=== PATIENT | female | born 1975 | race Caucasian/White ===

== ENCOUNTER 2019-10-25 12:23 | Outpatient (CLI) | payer OTHER, SELFPAY ==
--- NOTE | ~2019-10-25 | MMUS_ITS ---
EXAMINATION: MM diagnostic malcom RT w caitlin, US breast RT limited HISTORY: Follow-up right breast asymmetry TECHNIQUE: Additional 3-D tomosynthesis images of the right breast were performed and synthetic 2-D i mages were generated. CAD analysis was submitted and interpreted. High resolution breast ultrasound w as performed. COMPARISON: Comparison to multiple prior studies sequentially, with oldest reviewed study dated 09/2017. FINDINGS: MAMMOGRAPHIC FINDINGS: The breasts are heterogenously dense, which may obscure small masses. There is a persistent radioluce nt mass with incompletely circumscribed margins in the upper central aspect of the right breast. RIGHT breast ultrasound: At 12:00, 4 cm from the nipple, there is an oval slightly lobulated hypoechoic mass with some irregul ar margins. There are internal septations. This mass measures 1.8 x 1.2 x 0.6 cm there is minimal int ernal vascularity. No significant posterior features. This corresponds to the mammographic finding. IMPRESSION: 1. Oval hypoechoic right breast mass at 12:00, 4 cm from the nipple measuring 1.8 x 1.2 x 0.6 cm. Thi s corresponds to the mammographic finding. 2. Ultrasound-guided right breast biopsy recommended. BI-RADS category 4, suspicious findings. Reviewed, dictated and finalized at location A. IMPRESSION: 1. Oval hypoechoic right breast mass at 12:00, 4 cm from the nipple measuring 1 .8 x 1.2 x 0.6 cm. This corresponds to the mammographic finding. 2. Ultrasound-guided right breast biopsy recommended. BI-RADS category 4, suspicious findings.
== END 2019-10-25 12:24 | disposition home or self-care (01) ==
LOC: ANHIMG 12:27
PROVIDERS: PCP Family Medicine; Visit Provider Obstetrics & Gynecology
DX: N63.10 Unspecified lump in the right breast, unspecified quadrant (principal); R92.8 Other abnormal and inconclusive findings on diagnostic imaging of breast
CPT/HCPCS: 76642; 77061; 77065; G0279

== ENCOUNTER 2020-07-17 12:07 | Outpatient (CLI) | payer OTHER, SELFPAY ==
--- NOTE | ~2020-07-17 | MMUS_ITS ---
EXAMINATION: MM diagnostic malcom BI w caitlin, US breast RT limited HISTORY: Follow-up breast mass TECHNIQUE: Additional 3-D tomosynthesis images of the breasts were performed and synthetic 2-D images were generated. CAD analysis was submitted and interpreted. High resolution right breast ultrasound was performed. COMPARISON: Comparison to multiple prior studies sequentially, with oldest reviewed study dated 09/2017. BREAST PARENCHYMAL COMPOSITION: The breasts are heterogenously dense, which may obscure small masses. FINDINGS: MAMMOGRAPHIC FINDINGS: There are no suspicious masses, calcifications or architectural distortion in either breast to sugges t malignancy. ULTRASOUND: Left breast ultrasound: Normal heterogeneous echotexture without focal mass. IMPRESSION: 1. No evidence for malignancy in either breast. 2. Routine yearly screening mammogram and regular clinical breast examination are recommended. BI-RADS Category 1: Negative Reviewed, dictated and finalized at location A. ASSEMBLER IMPRESSION: 1. No evidence for malignancy in either breast. 2. Routine yearly screening mammogram and regular clinical breast examination a re recommended. BI-RADS Category 1: Negative
== END 2020-07-17 12:08 | disposition home or self-care (01) ==
LOC: ANHIMG 12:10
PROVIDERS: PCP Family Medicine; Visit Provider Obstetrics & Gynecology
DX: R92.8 Other abnormal and inconclusive findings on diagnostic imaging of breast (principal)
CPT/HCPCS: 76642; 77062; 77066; G0279

== ENCOUNTER 2021-12-11 10:01 | Outpatient (CLI) | payer OTHER, SELFPAY ==
--- NOTE | ~2021-12-11 | MM_ITS ---
EXAMINATION: MM screening malcom BI w caitlin HISTORY: Screening mammogram TECHNIQUE: Craniocaudal and mediolateral oblique 3-D tomosynthesis images were obtained and synthetic 2-D images were generated. CAD analysis was submitted and interpreted. COMPARISON: 07/17/2020 diagnostic bilateral mammogram and limited right breast ultrasound 3 and 06/30/2019 diagnostic right mammogram and limited right breast ultrasound examinations 06/23/2019, 06/12/2018 bilateral screening mammogram examinations BREAST PARENCHYMAL COMPOSITION: The breasts are heterogeneously dense, which may obscure small masses . FINDINGS: There is no evidence of suspicious mass, calcification, or architectural distortion to sugg est malignancy in either breast. There has been no suspicious interval change. IMPRESSION: 1. No mammographic evidence of malignancy. 2. Recommend routine screening mammography in one year. BI-RADS Category 1: Negative Reviewed, dictated and finalized at location A.
== END 2021-12-11 10:02 | disposition home or self-care (01) ==
PROVIDERS: PCP Family Medicine; Visit Provider Obstetrics & Gynecology
DX: Z12.31 Encounter for screening mammogram for malignant neoplasm of breast (principal)
CPT/HCPCS: 77063; 77067

== ENCOUNTER 2023-03-31 08:11 | Outpatient (CLI) | payer OTHER, SELFPAY ==
--- NOTE | ~2023-03-31 | MM_ITS ---
EXAMINATION: MM screening malcom BI w caitlin HISTORY: Screening mammogram TECHNIQUE: Craniocaudal and mediolateral oblique 3-D tomosynthesis images were obtained and synthetic 2-D images were generated. CAD analysis was submitted and interpreted. COMPARISON: 12/11/2021 bilateral screening mammogram examination 07/17/2020 diagnostic bilateral mammogram and limited right breast ultrasound 10/25/2019 06/30/2019 diagnostic right mammogram and limited right breast ultrasound 06/23/2019, 06/12/2018 bilateral screening mammogram examinations BREAST PARENCHYMAL COMPOSITION: The breasts are heterogeneously dense, which may obscure small masses . FINDINGS: There is a biopsy marker in the posterior upper central right breast; history of prior abhay gn right breast biopsy. There is no evidence of suspicious mass, calcification, or architectural dist ortion to suggest malignancy in either breast. There has been no suspicious interval change. IMPRESSION: 1. No mammographic evidence of malignancy. 2. Recommend routine screening mammography in one year. BI-RADS Category 1: Negative Reviewed, dictated and finalized at location A.
== END 2023-03-31 08:12 | disposition home or self-care (01) ==
LOC: ANHIMG 08:14
PROVIDERS: PCP Family Medicine; Visit Provider Obstetrics & Gynecology
DX: Z12.31 Encounter for screening mammogram for malignant neoplasm of breast (principal)
CPT/HCPCS: 77063; 77067

== ENCOUNTER 2025-02-10 15:39 | Outpatient (CLI) | payer OTHER, SELFPAY ==
--- NOTE | ~2025-02-10 | MM_ITS ---
EXAMINATION: MM screening [facility] BI w caitlin HISTORY: Screening mammogram TECHNIQUE: Craniocaudal and mediolateral oblique 3-D tomosynthesis images were obtained and synthetic 2-D images were generated. CAD analysis was submitted and interpreted. COMPARISON: 03/31/2023, 12/11/2021, 07/17/2020 BREAST PARENCHYMAL COMPOSITION:Not Dense. There are scattered areas of fibroglandular density. FINDINGS: No suspicious mass, calcification, or architectural distortion are identified in either marguerite ast to suggest malignancy. There has been no suspicious interval change. IMPRESSION: No mammographic evidence of malignancy. Recommend routine screening mammography in one year. BI-RADS Category 1: Negative Reviewed, dictated and finalized at location .
--- OUTSIDE RECORDS SUMMARY | 2025-02-10 15:42 | XMS_ITS | Clinical Summary ---
Author Organization [facility] Address [address] [place] [address] Care Team Providers Care Slat Pickler Name Role Phone Unavailable Primary Care Provider Unavailabl e Source Comments [facility],non-owned Affiliates and Associated Physician Practices is amultiple site organization consisting of ambulatory clinics and hospital sitesin [place], [place], [place] and [place]. This disclosure is being madepursuant to the Care Everywhere program and may not contain all information available regarding this patient. Last updated 18.[facility] Active Problems Problem Noted Date Diagnosed Date Advanced maternal age in 04/12/2014 Sequential screen 04/08/2014 Encounter for supervision of other normal pregna ncy 04/08/2014 Overview (06/18/2015): Social History Tobacco Use Types Packs/Day Years Used Date Smoking Tobacco: Never Assessed Comments No Sex and Gender Information Value Date Recorded Sex Assigned at Not on file Legal Sex Female 11:01 AM CDT Gender Identity Not on file Sexual Orientation Not on file Plan of Treatment Health Maintenance Due Date Last Done Comments COLOGUARD (AGES 45-75) - COL ON CA SCREENING 1977 COLON MONITORING 1977 COLONOSCOPY - COLON CA SCREENING 1977 CT COLONOGRAPHY - COLON CA SCREENING 1977 Colorectal Cancer Screening 1977 FIT - COLON CA SCREENING 1977 FLEX SIG - COLON CA SCREENING 1977 LIPID TESTING 1977 MAMMOGRAM 1977 HIV SCREENING 1992 HEPATITIS C SCREENING 11/28/1995 DTAP/TDAP/TD VACCINES (1 - Tdap) 1996 HEPATITIS B VACCINE (1 of 3 - 19+ 3-dose series) 1996 COVID-19 VACCINE (2023-2 5 season) 2024 DEPRESSION SCREENING 08/11/2024 INFLUENZA VACCINE (Season Ended) 2025 ZOSTER VACCINE (1 of 2) 12/03/2027 HIB VACCINE Aged Out No longer eligi ble based on patient's age to complete this topic HPV VACCINE Aged Out No longer eligi ble based on patient's age to complete this topic MENINGOCOCCAL (Group B) VACC INE SHARED DECISION-MAKING Aged Out No longer eligibl e based on patient's age to complete this topic MENINGOCOCCAL GROUPS A/C/Y/W VACCINE Aged Out No longer eligible b ased on patient's age to complete this topic PNEUMOCOCCAL VACCINE Aged Out No long er eligible based on patient's age to complete this topic Insurance [facility]
--- OUTSIDE RECORDS SUMMARY | 2025-02-10 15:42 | XMS_ITS | Clinical Summary ---
Author Organization [facility] Address [address] [place] [id number] Care Team Providers Care Combine Inspector Name Role Phone Unknown, Notinfile Primary Care Provider Unavail able Allergies Active Allergy Reactions Criticality Noted Date Comments Banana Cephalexin Sulfa (Sulfonamide Antibiotics) Itching Low Medications cetirizine (ZyrTEC) 10 mg tablet Take 1 tablet (10 mg total) by mouth daily Active levonorgestreL (Mirena) IUD Mirena 20 mcg/24 hours (7 yrs) 52 mg intrauterine device Take 1 device by intrauterine route. Activ e FLUoxetine 10 mg capsule Take 1 tablet/capsule (10 mg total) by mouth every morning 10/08/19 22 Active FLUoxetine (PROzac) 20 mg capsule Take 1 capsule (20 mg total) by mouth every morning 10/08/19 22 Active ciprofloxacin (CILOXAN) 0.3 % ophthalmic solution ciprofloxacin 0.3 % eye drops Active cyclobenzaprin e (FLEXERIL) 5 mg tablet cyclobenzaprine 5 mg tablet TAKE 1 TABLET BY MOUTH THREE TIMES DAILY NEEDED Active metoclopramide (REGLAN) 10 mg tablet metoclopramide 10 mg tablet TK 1 T PO TID Active montelukast (SINGULAIR) 10 mg tablet montelukast 10 mg tablet TK 1 T PO QD Active oxyCODONE-acet aminophen (PERCOCET) 5-325 mg per tablet oxycodone-acetamino phen 5 mg-325 mg tablet Active sertraline (ZOLOFT) 100 mg tablet sertraline 100 mg tablet Active spironolactone (ALDACTONE) 100 mg tablet Take 1 tablet (100 mg total) by mouth daily 11/18/19 24 Active spironolactone (ALDACTONE) 50 mg tablet Take 1 tablet (50 mg total) by mouth daily 09/03/19 24 Active benzonatate (TESSALON) 200 mg capsuleIndicat ions:Nasophary ngitis acute Take 1 capsule (200 mg total) by mouth 3 (three) times a day as needed for cough keep tessalon out of reach of children, especially children under the age of 10, due to possible serious risk such as if ingested by children under the age of 10. 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 Counseling for HPV (human papillomavirus) vaccin ation 12/01/2023 Irregular periods 12/01/2023 Left serous otitis media 12/01/2023 Low back pain 12/01/2023 Otitis media 12/01/2023 Spasm of back muscles 12/01/2023 Upper respiratory infection 12/01/2023 Abnormal findings on diagnostic imaging of breas t 11/08/2019 Surgical History Surgery Date Site/Laterality Comments BREAST BIOPSY 11/18/2019 Right Medical History Medical History Date Comments Personal history of other di seases of the respiratory system Personal history of asthma - (Added by TW Conv) Family History Medical History Relation Name Comments Cancer Other 1 Reported Family History Of Cancer - Maternal Aunt, PGM (Added by TW Conv) Hypertension Other 2 Reported Previo us High Blood Pressure - Father, Grandmother (Added by TW Conv) Thyroid disease Other 3 Thyroid Diso rder - Mother (Added by TW Conv) Heart disease Other 4 Heart Disease - PGF (Added by TW Conv) Obesity Other 5 Obesity - Mothe r, Father (Added by TW Conv) Cystic fibrosis Other 6 Cystic Fibro sis - 1st cousin (Added by TW Conv) Breast cancer Other 7 Breast Cancer - PGM (Added by TW Conv) Breast cancer Paternal Grandmother Relation Name Status Comments Other 1 Other 2 Other 3 Other 4 Other 5 Other 6 Other 7 Paternal Grandmother Social History Tobacco Use Types Packs/Day Years Used Date Smoking Tobacco: Former Smokeless Tobacco: Never Tobacco Cessation:Counseling Given: Not Answered Alcohol Use Standard Drinks/Week Comments Yes 0 (1 standard drink = 0.6 oz pur e alcohol) Comments No Sex and Gender Information Value Date Recorded Sex Assigned at Not on file 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 Gender Identity Not on file Sexual Orientation Not on file Obstetrics History Last Filed Vital Signs Vital Sign Reading Time Taken Comments Blood Pressure 111/74 05/17/2024 4:35 PM CDT Pulse 64 05/17/2024 4:35 PM CDT Temperature 36.4 C (97.5 F) 05/17/2024 4:35 PM CDT Respiratory Rate 18 05/17/2024 4:35 PM CDT Oxygen Saturation 97% 05/17/2024 4:35 PM CDT Inhaled Oxygen Concentration - - Weight 97.7 kg (215 lb 4.8 oz) 05/17/2024 4:35 P M CDT Height 170.2 cm (5' 7.01) 05/17/2024 4:35 PM CD T Body Mass Index 33.71 05/17/2024 4:35 PM CDT Plan of Treatment Health Maintenance Due Date Last Done Comments Breast Cancer Screening-Mammogram 1977 Cervical Cancer Screening 1977 Colon Cancer Screening-Colonoscopy 1977 Depression Screening 1977 Hepatitis C Screening 1977 Hepatitis B Screening 12/03/1995 Regular Well Visit/Exam 18-64 12/03/1995 Pneumococcal vaccine <65 (1 of 2 - PCV) 1996 DTaP/Tdap/Td Vaccine (4 - Td or Tdap) 09/21/2024 09/21/2014, 01/06/2013, 01/06/2013 Influenza Vaccine (Season Ended) 2025 07/18/2022, 06/14/2019, 06/12/2018, Additional history exists Insurance [id number] Address: [place] [address] [facility]/PPO Address: [place] [address] [facility]PPO Address: [facility] [address] [place] [address] Care Teams Combine Inspector Relationship Specialty Start Date End Date Unknown, Notinfile PCP - General 05/17/24
--- OUTSIDE RECORDS SUMMARY | 2025-02-10 15:42 | XMS_ITS | Referral Summary ---
Author Organization [facility] Address [facility] [place] [address] Care Team Providers Care Industrial Maintenance Instructor Name Role Phone Unknown, Notinfile Primary Care [...] (100 mg total) by mouth daily 11/18/19 Active spironolactone (ALDACTONE) 50 mg tablet Take [...] on diagnostic imaging of breas t 11/08/2019 Social History Tobacco Use Types Packs/Day Years Used Date Smoking Tobacco: Former Smokeless Tobacco: Never Tobacco Cessation:Counseling Given: Not Answered Alcohol Use Standard Drinks/Week Comments Yes 0 (1 standard drink = 0.6 oz pur e alcohol) Comments No Sex and Gender Information Value Date Recorded Sex Assigned at Not on file 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
--- OUTSIDE RECORDS SUMMARY | 2025-02-10 15:42 | XMS_ITS | Clinical Summary ---
Author Organization [facility] Address [address] [place]: Epic Prelude ADT [place] [phone] Care Team Providers Care Authorization Manager Name Role Phone Unavailable Primary Care Provider Unavailabl e Allergies Active Allergy Reactions Criticality Noted Date Comments Sulfa (Sulfonamide Antibiotics) Rash High 05/13 Encounters Date Type Department Care Team Description 01/11/2025 External Device Data [facility] ABSTRACTION Provider, Abstract from Last 3 Months Immunizations Immunization Administration Dates Next Due INFLUENZA VACCINE QUADRIVALENT 6 MOS UP PF IM INFLUENZA VACCINE TRIVALENT SPLIT VIRUS, (6 MOS UP), 0.5ML (PF), IM 06/10/2024 Social History Tobacco Use Types Packs/Day Years Used Date Smoking Tobacco: Never Assessed Comments Unknown Sex and Gender Information Value Date Recorded Sex Assigned at Not on file Legal Sex Female 3:27 PM CDT Gender Identity Not on file Sexual Orientation Not on file Plan of Treatment Health Maintenance Due Date Last Done Comments DTAP/TDAP/TD VACCINES (1 - Tdap) 1996 HEPATITIS B VACCINES (1 of 3 - 19+ 3-dose series) 1996 HPV/Cotest (21-29) 1998 CERVICAL CANCER SCREENING 12/03/2007 HPV/Cotest (30-65) 12/03/2007 PAP SMEAR 12/03/2007 BREAST CANCER SCREENING 2017 COLORECTAL SCREENING 2022 Colorectal Cancer Screening 2022 FIT-DNA Q 3 years 2022 FIT/FOBT Q 1 year 2022 Flex Sig/CT Colonography Q 5 years 2022 INFLUENZA VACCINE (#1) 2025 06/10/2024, 2021 Insurance RX [employer] Member Subscriber Plan / Payer (Ef fective for All Dates) Name:AYSE JEROME Relation to Subscriber:Spouse Name:AYSE JEROME Payer ID:Not on file Group ID:[id number] Type:RX Commercial Address: [place]
== END 2025-02-10 15:40 | disposition home or self-care (01) ==
LOC: ANHIMG 15:40
PROVIDERS: Visit Provider Obstetrics & Gynecology
DX: Z12.31 Encounter for screening mammogram for malignant neoplasm of breast (principal)
CPT/HCPCS: 77063; 77067